=== PATIENT | female | born 1945 | race Caucasian/White ===

== ENCOUNTER 2016-08-05 11:50 | Outpatient (CLI) | payer MEDICARE, OTHER | END 2016-08-05 11:51 | disposition home or self-care (01) | DX: Z12.31 Encounter for screening mammogram for malignant neoplasm of breast (principal) ==

== ENCOUNTER 2016-11-17 11:24 | Outpatient (CLI) | payer MEDICARE, OTHER | END 2016-11-17 11:25 | disposition home or self-care (01) | DX: R74.0 Nonspecific elevation of levels of transaminase and lactic acid dehydrogenase [LDH] (principal); E11.9 Type 2 diabetes mellitus without complications; I10 Essential (primary) hypertension; E78.5 Hyperlipidemia, unspecified ==

== ENCOUNTER 2018-01-15 08:16 | Outpatient (CLI) | payer MEDICARE, OTHER ==
[2018-01-15 11:16] LABS: BASOPHILS # (AUTO) 0.1 10^3/uL (0.0-0.1); BASOPHILS % (AUTO) 0.6 %; EOSINOPHILS # (AUTO) 0.2 10^3/uL (0.0-0.7); EOSINOPHILS % (AUTO) 1.4 %; HGB - HEMOGLOBIN 14.1 g/dL (12.0-16.0); LYMPHOCYTES # (AUTO) 3.6 10^3/uL (1.5-3.5); LYMPHOCYTES % (AUTO) 34.6 %; MEAN CORPUSCULAR HEMOGLOBIN 31.3 pg (27.0-31.0); MEAN CORPUSCULAR HGB CONC 33.3 g/dL (32.0-36.0); MEAN CORPUSCULAR VOLUME 93.8 fL (81.0-99.0); MEAN PLATELET VOLUME 10.9 fL (7.9-10.8); MONOCYTES # (AUTO) 0.7 10^3/uL (0.0-1.0); MONOCYTES % (AUTO) 6.9 %; NEUTROPHILS # (AUTO) 5.9 10^3/uL (1.5-6.6); NEUTROPHILS % (AUTO) 56.5 %; PLT - PLATELET COUNT 206 10^3/uL (130-450); RED BLOOD COUNT 4.53 10^6/uL (4.20-5.40); RED CELL DISTRIBUTION WIDTH 12.6 % (12.0-15.0); WHITE BLOOD COUNT 10.5 x10^3/uL (4.8-10.8)
[2018-01-15 11:48] LABS: ALBUMIN 3.7 g/dL (3.2-5.5); ALKALINE PHOSPHATASE 57 IU/L (42-121); ALT ALANINE AMINOTRANSFERASE 57 IU/L (10-60); AST ASPARTATE AMINOTRANSFERASE 37 IU/L (10-42); BILIRUBIN,TOTAL 1.1 mg/dL (0.2-1.0); BUN - BLOOD UREA NITROGEN 16 mg/dL (6-20); CALCIUM 9.3 mg/dL (8.5-10.3); CARBON DIOXIDE - CO2 30 mmol/L (21-32); CHLORIDE 98 mmol/L (101-111); CHOL/HDL RATIO 3.7 (<4.4); CHOLESTEROL 147 mg/dL; CREATININE 0.7 mg/dL (0.4-1.0); GFR - MDRD 82 (>89); GLUCOSE 298 mg/dL (70-100); HDL CHOLESTEROL 40 mg/dL; LDL CHOLESTEROL,CALCULATED 71 mg/dL; LDL/HDL RATIO 1.8 (<4.4); SODIUM 136 mmol/L (135-145); TOTAL PROTEIN 7.3 g/dL (6.7-8.2); VLDL CHOLESTEROL 36 mg/dL
[2018-01-15 12:18] LABS: HB2 TOTAL 15.1 g/dL; HEMOGLOBIN A1C 1.6 g/dL; HEMOGLOBIN A1C % 11.8 % (4.6-6.2)
== END 2018-01-15 08:17 | disposition home or self-care (01) ==
LOC: LAB.F 08:16
PROVIDERS: ATTEND Family Medicine
DX: E11.9 Type 2 diabetes mellitus without complications (principal); E78.5 Hyperlipidemia, unspecified; I10 Essential (primary) hypertension
CPT/HCPCS: 36415; 80053; 80061; 83036; 83721; 85025

== ENCOUNTER 2018-01-21 13:19 | Outpatient (CLI) | payer MEDICARE, OTHER ==
--- NOTE | 2018-01-21 16:51 | XRAY Report ---
Procedure Date: 01/21/2018 Accession Number: [id number] / [id number] Procedure: XRS - Sinus Complete CPT Code: FULL RESULT: EXAM: Sinus Complete DATE: 01/21/2018 1:34 PM CLINICAL HISTORY: CHRONIC SINUSITIS, congestion TECHNIQUE: COMPARISON: 10/22/[address] FINDINGS: The sinuses are clear. No bone destruction or radiopaque orbital foreign body. Nasal septum midline. Nasopharyngeal soft tissues not enlarged. IMPRESSION: No findings to suggest sinus disease
== END 2018-01-21 13:20 | disposition home or self-care (01) ==
LOC: DI.S 13:19
PROVIDERS: ATTEND Physician Assistant Medical
DX: J32.9 Chronic sinusitis, unspecified (principal)
CPT/HCPCS: 70220

== ENCOUNTER 2018-02-16 08:13 | Outpatient (CLI) | payer MEDICARE, OTHER ==
[2018-02-16 13:29] LABS: ALBUMIN 3.8 g/dL (3.2-5.5); ALBUMIN/GLOBULIN RATIO 1.2 (1.0-2.2); BILIRUBIN,TOTAL 1.2 mg/dL (0.2-1.0); CALCIUM 9.5 mg/dL (8.5-10.3); CREATININE 0.7 mg/dL (0.4-1.0); TOTAL PROTEIN 7.1 g/dL (6.7-8.2)
== END 2018-02-16 08:14 | disposition home or self-care (01) ==
LOC: LAB.F 08:13
PROVIDERS: ATTEND Physician Assistant Medical
DX: Z51.81 Encounter for therapeutic drug level monitoring (principal)
CPT/HCPCS: 36415; 80053

== ENCOUNTER 2018-03-11 12:47 | Outpatient (CLI) | payer MEDICARE, OTHER | END 2018-03-11 12:48 | disposition home or self-care (01) | LOC: NS 12:47 | PROVIDERS: ATTEND Physician Assistant Medical | DX: Z71.3 Dietary counseling and surveillance (principal); E11.65 Type 2 diabetes mellitus with hyperglycemia; Z68.38 Body mass index [BMI] 38.0-38.9, adult; E78.2 Mixed hyperlipidemia | CPT/HCPCS: 97802 ==

== ENCOUNTER 2018-03-26 10:55 | Outpatient (CLI) | payer MEDICARE, OTHER | END 2018-03-26 10:56 | disposition home or self-care (01) | LOC: NS 10:55 | PROVIDERS: ATTEND Physician Assistant Medical | DX: Z71.3 Dietary counseling and surveillance (principal); E11.65 Type 2 diabetes mellitus with hyperglycemia; Z68.38 Body mass index [BMI] 38.0-38.9, adult; E78.2 Mixed hyperlipidemia; Z79.84 Long term (current) use of oral hypoglycemic drugs; Z68.36 Body mass index [BMI] 36.0-36.9, adult | CPT/HCPCS: 97803 ==

== ENCOUNTER 2018-04-30 10:11 | Outpatient (CLI) | payer MEDICARE, OTHER ==
[2018-04-30 18:19] LABS: HGB - HEMOGLOBIN 13.4 g/dL (12.0-16.0); MEAN CORPUSCULAR HEMOGLOBIN 31.4 pg (27.0-31.0); MEAN CORPUSCULAR HGB CONC 33.8 g/dL (32.0-36.0); MEAN CORPUSCULAR VOLUME 92.8 fL (81.0-99.0); MEAN PLATELET VOLUME 10.3 fL (7.9-10.8); RED BLOOD COUNT 4.28 10^6/uL (4.20-5.40); RED CELL DISTRIBUTION WIDTH 12.8 % (12.0-15.0); WHITE BLOOD COUNT 9.4 x10^3/uL (4.8-10.8)
[2018-04-30 19:49] LABS: ALBUMIN 3.9 g/dL (3.2-5.5); ALBUMIN/GLOBULIN RATIO 1.1 (1.0-2.2); ALKALINE PHOSPHATASE 55 IU/L (42-121); ALT ALANINE AMINOTRANSFERASE 44 IU/L (10-60); AST ASPARTATE AMINOTRANSFERASE 30 IU/L (10-42); BUN - BLOOD UREA NITROGEN 15 mg/dL (6-20); CALCIUM 9.4 mg/dL (8.5-10.3); CARBON DIOXIDE - CO2 30 mmol/L (21-32); CHLORIDE 101 mmol/L (101-111); CHOL/HDL RATIO 3.4 (<4.4); CHOLESTEROL 141 mg/dL; CREATININE 0.7 mg/dL (0.4-1.0); GFR - MDRD 82 (>89); GLUCOSE 119 mg/dL (70-100); HDL CHOLESTEROL 42 mg/dL; LDL CHOLESTEROL,CALCULATED 74 mg/dL; LDL/HDL RATIO 1.8 (<4.4); SODIUM 140 mmol/L (135-145); TOTAL PROTEIN 7.3 g/dL (6.7-8.2); URIC ACID 6.3 mg/dL (2.6-7.2); VLDL CHOLESTEROL 25 mg/dL
[2018-04-30 20:02] LABS: CRP - C-REACTIVE PROTEIN < 1.0 mg/dL (0-1.0)
[2018-04-30 20:15] LABS: RHEUMATOID FACTOR NEGATIVE (Negative)
[2018-04-30 20:21] LABS: HB2 TOTAL 14.3 g/dL; HEMOGLOBIN A1C 0.8 g/dL; HEMOGLOBIN A1C % 7.3 % (4.6-6.2)
[2018-05-03 20:16] LABS: ANA SCREEN NEGATIVE (NEGATIVE)
== END 2018-04-30 10:12 | disposition home or self-care (01) ==
LOC: LAB.F 10:11
PROVIDERS: ATTEND Physician Assistant Medical
DX: E11.65 Type 2 diabetes mellitus with hyperglycemia (principal); M20.039 Swan-neck deformity of unspecified finger(s); M13.0 Polyarthritis, unspecified
CPT/HCPCS: 36415; 80053; 80061; 82043; 83036; 83721; 84550; 85027; 85651; 86038; 86140; 86200; 86430

== ENCOUNTER 2018-07-20 07:33 | Outpatient (CLI) | payer MEDICARE, OTHER ==
[2018-07-20 13:23] LABS: HB2 TOTAL 13.1 g/dL; HEMOGLOBIN A1C 0.61 g/dL; HEMOGLOBIN A1C % 6.4 % (4.6-6.2)
== END 2018-07-20 07:34 | disposition home or self-care (01) ==
LOC: LAB.F 07:33
PROVIDERS: ATTEND Physician Assistant Medical
DX: E11.9 Type 2 diabetes mellitus without complications (principal)
CPT/HCPCS: 36415; 83036

== ENCOUNTER 2019-07-13 09:57 | Outpatient (CLI) | payer MEDICARE, OTHER ==
[2019-07-13 18:59] LABS: BASOPHILS # (AUTO) 0.1 10^3/uL (0.0-0.1); BASOPHILS % (AUTO) 0.5 %; EOSINOPHILS # (AUTO) 0.2 10^3/uL (0.0-0.7); EOSINOPHILS % (AUTO) 1.7 %; HGB - HEMOGLOBIN 12.7 g/dL (12.0-16.0); LYMPHOCYTES # (AUTO) 3.2 10^3/uL (1.5-3.5); MEAN CORPUSCULAR HEMOGLOBIN 29.7 pg (27.0-31.0); MEAN CORPUSCULAR HGB CONC 30.5 g/dL (32.0-36.0); MEAN CORPUSCULAR VOLUME 97.4 fL (81.0-99.0); MEAN PLATELET VOLUME 12.5 fL (7.9-10.8); MONOCYTES # (AUTO) 0.7 10^3/uL (0.0-1.0); MONOCYTES % (AUTO) 7.7 %; NEUTROPHILS # (AUTO) 5.3 10^3/uL (1.5-6.6); NEUTROPHILS % (AUTO) 55.7 %; PLT - PLATELET COUNT 215 10^3/uL (130-450); RED BLOOD COUNT 4.28 10^6/uL (4.20-5.40); RED CELL DISTRIBUTION WIDTH 12.5 % (12.0-15.0); WHITE BLOOD COUNT 9.5 x10^3/uL (4.8-10.8)
[2019-07-13 19:16] LABS: HB2 TOTAL 13.3 g/dL; HEMOGLOBIN A1C 1.27 g/dL; HEMOGLOBIN A1C % 10.9 % (4.6-6.2)
[2019-07-13 19:17] LABS: BUN - BLOOD UREA NITROGEN 17 mg/dL (6-20); CALCIUM 9.3 mg/dL (8.5-10.3); CARBON DIOXIDE - CO2 31 mmol/L (21-32); CHLORIDE 103 mmol/L (101-111); CHOL/HDL RATIO 3.7 (<4.4); CHOLESTEROL 155 mg/dL; CREATININE 0.5 mg/dL (0.4-1.0); GFR - MDRD 121 (>89); GLUCOSE 251 mg/dL (70-100); HDL CHOLESTEROL 42 mg/dL; LDL CHOLESTEROL,CALCULATED 88 mg/dL; LDL/HDL RATIO 2.1 (<4.4); SODIUM 140 mmol/L (135-145); VLDL CHOLESTEROL 25 mg/dL
== END 2019-07-13 09:58 | disposition home or self-care (01) ==
LOC: LAB.S 09:57
PROVIDERS: ATTEND Physician Assistant Medical
DX: E11.9 Type 2 diabetes mellitus without complications (principal); E78.2 Mixed hyperlipidemia; I10 Essential (primary) hypertension
CPT/HCPCS: 36415; 80048; 80061; 83036; 83721; 85025

== ENCOUNTER 2019-07-14 04:08 | Outpatient (CLI) | payer MEDICARE, OTHER ==
[2019-07-14 12:55] LABS: CREATININE,URINE 63.5 mg/dL; MICROALBUM/CREATININE RATIO,UR 15.7 ug/mg (<30.0)
== END 2019-07-14 23:59 | disposition home or self-care (01) ==
LOC: LAB.R 04:08
PROVIDERS: ATTEND Physician Assistant Medical
DX: E11.9 Type 2 diabetes mellitus without complications (principal)
CPT/HCPCS: 82043; 82570

== ENCOUNTER 2019-10-09 16:23 | Outpatient (CLI) | payer MEDICARE, OTHER | END 2019-10-09 16:24 | disposition EMS.NT | LOC: EMS 16:23 | PROVIDERS: ATTEND Surgery | DX: M25.511 Pain in right shoulder (principal); W01.0XXA Fall on same level from slipping, tripping and stumbling without subsequent striking against object, initial encounter; Y92.000 Kitchen of unspecified non-institutional (private) residence as the place of occurrence of the external cause ==

== ENCOUNTER 2019-10-09 17:32 | Emergency (ER) | payer MEDICARE, OTHER ==
[2019-10-09] MEDS ORDERED: ONDANSETRON ODT 4 MG TABLET TL STA (17:49)
[2019-10-09] MEDS ORDERED: HYDROmorphone 1 MG/ML SYRINGE IM STA (17:49)
--- NOTE | 2019-10-09 17:53 | ED Physician Documentation ---
PD HPI UPPER EXT INJURY - Stated complaint Stated Complaint: GLF/RT ARM INJURY - Chief complaint Chief Complaint: Ext Problem - History obtained from History obtained from: Patient - History of Present Illness Location: Left (She had a trip and fall over a box directly onto her left side hitting her left shoulder on the ground. She did not hit her head. She denies head pain or neck pain. No other injuries. Pain is severe though.) Review of Systems Constitutional: denies: Fever, Chills Throat: denies: Dental pain / toothache, Sore throat Cardiac: denies: Chest pain / pressure, Palpitations Respiratory: denies: Dyspnea, Cough PD PAST MEDICAL HISTORY - Past Medical History Cardiovascular: Hypertension, High cholesterol Respiratory: None Endocrine/Autoimmune: Type 2 diabetes GI: GERD - Past Surgical History Past Surgical History: Yes Ortho: Knee replacement - Present Medications Home Medications: Ambulatory Orders Medication Instructions Recorded Confirmed Atenolol 50 mg PO DAILY 10/23/14 10/09/19 Atorvastatin [Lipitor] 10 mg PO BID 10/23/14 10/09/19 Metformin HCl 1,000 mg PO BID 10/23/14 10/09/19 Aspirin EC [Ecotrin] 81 mg PO 10/09/19 Glimepiride 20 mg PO 10/09/19 Hydrocodone/Acetaminophen 0.5 - 1 each PO Q6H PRN #20 tablet 10/09/19 [Hydrocodon-Acetaminophen 5-325] Losartan [Cozaar] 50 mg PO DAILY 10/09/19 10/09/19 Multivitamin [Multiple Vitamins] 10/09/19 - Allergies Allergies/Adverse Reactions: Allergies Allergy/AdvReac Type Severity Reaction Status Date / Time morphine AdvReac Emesis Verified 10/23/14 11:59 - Social History Does the pt smoke?: No Smoking Status: Never smoker Does the pt drink ETOH?: No Does the pt have substance abuse?: No - Immunizations Immunizations are current?: Yes PD ED PE NORMAL - Vitals Vital signs reviewed: Yes - General General: Alert and oriented X 3, No acute distress - HEENT HEENT: PERRL, EOMI - Neck Neck: Supple, no meningeal sign, No bony TTP - Cardiac Cardiac: RRR, No murmur - Respiratory Respiratory: No respiratory distress, Clear bilaterally - Abdomen Abdomen: Non tender - Back Back: No CVA TTP, No spinal TTP - Derm Derm: Normal color, Warm and dry - Extremities Extremities: Other (Tender over the upper humerus and winces with any motion there. Normal neurovascular function in the forearm and hand. Lower extremities and right upper extremity are nontender.) - Neuro Neuro: Alert and oriented X 3, No motor deficit, No sensory deficit, Normal speech - Psych Psych: Normal mood, Normal affect Results - Vitals Vitals: Vital Signs - 24 hr 10/09/19 10/09/19 10/09/19 17:43 18:45 20:15 Temperature 36.3 C L Heart Rate 76 79 80 Respiratory 22 16 18 Rate Blood Pressure 160/100 H 146/56 H 148/61 H O2 Saturation 93 93 95 Oxygen O2 Source Nasal cannula Oxygen Flow Rate 1.5 PD MEDICAL DECISION MAKING - ED course ED course: 74yo W with GLF and isolated LUE shoulder inj. XR as shown and to my eye non displaced glenoid frx too. Discussed with Dr Ding, ortho, agreed non--op in lsing and f/o oetho clinci. Pt very sensitive to narotics and per her reuest only v low doses used. Departure - Departure Disposition: 01 Home, Self Care Clinical Impression: Scapula fracture Qualifiers: Encounter type: initial encounter Scapula location: unspecified part of scapula Fracture type: closed Laterality: left Qualified Code(s): S42.102A - Fracture of unspecified part of scapula, left shoulder, initial encounter for closed fracture Humerus fracture Qualifiers: Encounter type: initial encounter Humerus Location: proximal Fracture type: closed Fracture morphology: other fracture Fracture alignment: nondisplaced Laterality: left Qualified Code(s): S42.295A - Other nondisplaced fracture of upper end of left humerus, initial encounter for closed fracture Condition: Good Record reviewed to determine appropriate education?: Yes Instructions: ED Fx Shoulder Follow-Up: [facility] [Provider Group] - Within 1 week Prescriptions: Hydrocodone/Acetaminophen [Hydrocodon-Acetaminophen 5-325] 0.5 - 1 each PO Q6H PRN #20 tablet PRN Reason: pain Comments: Do not drink or drive while taking narcotic pain medication. Note that many narcotic pain relievers also contain Tylenol/acetaminophen. Please ensure that your total dose of acetaminophen from all sources does not exceed 3 g (3000 mg) per day. You may get constipated while on this medication. Take a stool softener such as Colace twice a day while you are on it. Also add an oqih-vhi-tgrvgmj laxative such as senna or MiraLAX on any day that you do not have a bowel movement. If you received a narcotic pain medication or sedative while in the emergency department, do not drive for the next 24 hours. Discharge Date/Time: 10/09/19 21:03
[2019-10-09] MEDS ORDERED: KETOROLAC 60 MG/2 ML VIAL IM STA (17:59)
[2019-10-09] MEDS ORDERED: HYDROcod/ACETAM 5/325 MG TABLET PO STA (18:36)
--- NOTE | 2019-10-09 19:00 | XRAY Report ---
Reason: arm inj Procedure Date: 10/09/2019 Accession Number: [id number] / [id number] Procedure: XR - Humerus LT CPT Code: Final Report FULL RESULT: EXAM: LEFT HUMERUS RADIOGRAPHY EXAM DATE: 10/09/2019 06:27 PM. CLINICAL HISTORY: Arm injury. COMPARISON: None. TECHNIQUE: 2 views. FINDINGS: Bones: There is a minimally displaced transverse fracture through the surgical neck of the humerus with a vertical component extending through the greater tuberosity. There is also an apparent fracture involving the infraspinous segment of the scapula including glenoid however detail is suboptimal due to patient positioning. Joints: Normal. No effusions or subluxations in the visualized shoulder or elbow joints. Soft Tissues: Normal. No soft tissue swelling. IMPRESSION: Minimally displaced three-part humeral head and neck fracture. Additional scapula fractures which may be better assessed by dedicated scapular views or CT. RADIA
[2019-10-09 20:16] VITALS: BP 148/61
--- NOTE | 2019-10-09 20:48 | CT Report ---
Reason: humerus and scapula fracture Procedure Date: 10/09/2019 Accession Number: [id number] / [id number] Procedure: CT - UPPER EXTREMITY WO - LT CPT Code: Final Report FULL RESULT: EXAM: LEFT SHOULDER CT WITHOUT CONTRAST EXAM DATE: 10/09/2019 08:03 PM. CLINICAL HISTORY: Humerus and scapula fracture. Fall. COMPARISON: 10/09/2019 radiograph. TECHNIQUE: Thin-section axial images were acquired of the shoulder without contrast. Post-processing: Coronal and sagittal reformats. Other: None. In accordance with CT protocol optimization, one or more of the following dose reduction techniques were utilized for this exam: automated exposure control, adjustment of mA and/or KV based on patient size, or use of iterative reconstructive technique. FINDINGS: Bones: Mild osteopenia is present. A comminuted fracture of the proximal humerus has a curvilinear fracture line through the surgical neck. There is also a sagittal-oriented fracture line that separates the greater tuberosity. The greater tuberosity is superiorly displaced by 4 mm. Joints: The glenohumeral joint is unremarkable. Mild acromioclavicular osteoarthropathy is evidence by bony hypertrophy and capsular calcification. The acromion is type II. Musculature: Normal. No fatty atrophy. Other: The visualized lungs are unremarkable. No lymphadenopathy in the visualized axilla. IMPRESSION: Neer one part fracture of the proximal humerus. RADIA
[2019-10-09] MEDS ORDERED: HYDROcod/ACET 5/325 Prepack 4 PO STA (20:51)
[2019-10-10] MEDS ORDERED: ONDANSETRON ODT 4 MG Prepack 2 TL STA (20:17)
--- NOTE | 2019-10-10 20:19 | ED Physician Documentation ---
ED Addendum - Addendum Addendum: 10/10/19 20:19 To call from daughter, she is having a lot of nausea from the pain medicine. She will come up and get a prepack of Zofran for tonight and I wrote a prescription for Zofran 4 mg ODT 1 by mouth every 6 hours as needed for nausea #20.
[2019-10-10] MEDS ORDERED: ONDANSETRON ODT 4 MG Prepack 2 TL ONE (20:28)
== END 2019-10-09 21:03 | disposition home or self-care (01) ==
LOC: ED 17:32
DX: S42.142A Displaced fracture of glenoid cavity of scapula, left shoulder, initial encounter for closed fracture (principal); W18.09XA Striking against other object with subsequent fall, initial encounter; I10 Essential (primary) hypertension; E78.00 Pure hypercholesterolemia, unspecified; E11.9 Type 2 diabetes mellitus without complications; Z79.84 Long term (current) use of oral hypoglycemic drugs; Z79.82 Long term (current) use of aspirin
CPT/HCPCS: 73060; 73200; 96372; 99284; A9270; Q0162

== ENCOUNTER 2019-12-06 12:09 | Outpatient (CLI) | payer MEDICARE, OTHER ==
--- NOTE | 2019-12-07 21:00 | XRAY Report ---
Reason: OTHER DISPLACE FRACTURE OF UPPER END OF LT HUMERUS Procedure Date: 12/06/2019 Accession Number: [id number] / [id number] Procedure: XR - Shoulder 3 View LT CPT Code: Final Report FULL RESULT: EXAM: LEFT SHOULDER RADIOGRAPHY EXAM DATE: 12/06/2019 12:41 PM. CLINICAL HISTORY: OTHER DISPLACE FRACTURE OF UPPER END OF LT HUMERUS. COMPARISON: HUMERUS LT 10/09/2019 6:08 PM. TECHNIQUE: 3 views. FINDINGS: Bones: Comminuted humeral head and neck fracture. Fracture involves greater tuberosity. Lateral aspect is displaced craniad by 4 mm which is unchanged.. Periosteal new bone formation. Fracture is visible Joints: Glenohumeral osteophyte. AC joint hypertrophy. Soft tissues: The visualized hemithorax is unremarkable. No soft tissue swelling. IMPRESSION: Healing comminuted humeral head and neck fracture RADIA
== END 2019-12-06 12:10 | disposition home or self-care (01) ==
LOC: DI 12:09
PROVIDERS: ATTEND Orthopaedic Surgery Sports Medicine
DX: S42.292D Other displaced fracture of upper end of left humerus, subsequent encounter for fracture with routine healing (principal)

== ENCOUNTER 2020-04-20 07:25 | Outpatient (CLI) | payer MEDICARE, OTHER ==
--- NOTE | 2020-04-20 16:38 | XRAY Report ---
PROCEDURE: Shoulder 2 View LT INDICATIONS: DISPLACED FRACTURE PROXIMAL HUMERUS LEFT TECHNIQUE: 2 views of the shoulder were acquired. COMPARISON: Left shoulder x-ray 12/06/2019, 10/09/2019. CT left upper extremity 10/19/2019. FINDINGS: Bones: There is progressive healing of a left humeral head fracture with the fracture line less dist inct in appearance. There is bridging callus along the fracture margins. No change in alignment. Ther e is mild acromioclavicular joint degeneration again noted. Visualized ribs appear intact. Soft tissues: No suspicious soft tissue calcifications. IMPRESSION: 1. Progressive healing of left humeral head fracture. Reviewed by: Akbar Ontiveros MD on 04/20/2020 4:37 PM PDT Approved by: Akbar Ontiveros MD on 04/20/2020 4:37 PM PDT Station ID: [id number]
== END 2020-04-20 07:26 | disposition home or self-care (01) ==
LOC: DI.WCP 07:25
PROVIDERS: ATTEND Orthopaedic Surgery
DX: S42.292A Other displaced fracture of upper end of left humerus, initial encounter for closed fracture (principal)

== ENCOUNTER 2020-06-23 10:32 | Outpatient (CLI) | payer MEDICARE, OTHER ==
[2020-06-23 15:17] LABS: CALCIUM 9.9 mg/dL (8.5-10.3); CREATININE 0.6 mg/dL (0.4-1.0)
[2020-06-23 19:56] LABS: HEMOGLOBIN A1c% 11.5 % (4.27-6.07)
== END 2020-06-23 10:33 | disposition home or self-care (01) ==
LOC: LAB.S 10:32
PROVIDERS: ATTEND Registered Nurse
DX: E11.9 Type 2 diabetes mellitus without complications (principal)
CPT/HCPCS: 36415; 80048; 83036

== ENCOUNTER 2020-06-24 12:50 | Outpatient (CLI) | payer MEDICARE, OTHER ==
[2020-06-24 18:35] LABS: CREATININE,URINE 97.7 mg/dL; MICROALBUM/CREATININE RATIO,UR 7.2 ug/mg (<30.0); MICROALBUMIN,URINE 0.7 mg/dL (0-300.0)
== END 2020-06-24 23:59 | disposition home or self-care (01) ==
LOC: LAB.R 12:50
PROVIDERS: ATTEND Registered Nurse
DX: E11.9 Type 2 diabetes mellitus without complications (principal)
CPT/HCPCS: 82043; 82570

== ENCOUNTER 2020-09-26 09:42 | Outpatient (CLI) | payer MEDICARE, OTHER ==
[2020-09-26 15:05] LABS: CALCIUM 9.5 mg/dL (8.5-10.3); CREATININE 0.6 mg/dL (0.4-1.0)
[2020-09-26 15:06] LABS: HEMOGLOBIN A1c% 8.5 % (4.27-6.07)
[2020-09-26 20:34] LABS: CREATININE,URINE 63.6 mg/dL; MICROALBUM/CREATININE RATIO,UR 17.3 ug/mg (<30.0); MICROALBUMIN,URINE 1.1 mg/dL (0-300.0)
== END 2020-09-26 09:43 | disposition home or self-care (01) ==
LOC: LAB.S 09:42
PROVIDERS: ATTEND Registered Nurse
DX: E11.9 Type 2 diabetes mellitus without complications (principal)
CPT/HCPCS: 36415; 80048; 82043; 82570; 83036

== ENCOUNTER 2020-10-20 07:00 | Outpatient (CLI) | payer MEDICARE, OTHER ==
[2020-10-20 15:53] LABS: BILIRUBIN,URINE NEGATIVE (NEGATIVE); GLUCOSE, URINE (UA) >=1000 mg/dL (NEGATIVE); KETONES,URINE (UA) NEGATIVE (NEGATIVE); LEUKOCYTE ESTERASE, URINE NEGATIVE (NEGATIVE); NITRITE,URINE NEGATIVE (NEGATIVE); OCCULT BLOOD,URINE NEGATIVE (NEGATIVE); PROTEIN,URINE NEGATIVE (NEGATIVE); UROBILINOGEN,URINE 0.2 (NORMAL) E.U./dL (NORMAL)
[2020-10-20 15:56] LABS: CLARITY,URINE CLEAR (CLEAR)
[2020-10-20 16:04] LABS: BACTERIA,URINE Few /HPF (None Seen); SQUAMOUS EPITHELIAL CELL,UR NONE SEEN (<= Few)
[2020-10-20 20:54] LABS: BACTERIAL VAGINOSIS DNA NEGATIVE (NEGATIVE); CANDIDA GLABRATA DNA NEGATIVE (NEGATIVE); CANDIDA GROUP DNA POSITIVE (NEGATIVE); CANDIDA KRUSEI DNA NEGATIVE (NEGATIVE); TRICHOMONAS VAGINALIS DNA NEGATIVE (NEGATIVE)
== END 2020-10-20 23:59 | disposition home or self-care (01) ==
LOC: LAB.R 07:00
PROVIDERS: ATTEND Emergency Medicine
DX: N76.0 Acute vaginitis (principal)
CPT/HCPCS: 81001; 87086; 87661; 87801

== ENCOUNTER 2022-05-31 15:14 | Outpatient (CLI) | payer MEDICARE, OTHER | END 2022-05-31 23:59 | disposition left against medical advice (07) | LOC: EMS 15:14 | DX: R07.89 Other chest pain (principal); M25.562 Pain in left knee; V43.52XA Car driver injured in collision with other type car in traffic accident, initial encounter; Y92.413 State road as the place of occurrence of the external cause ==

== ENCOUNTER 2023-02-10 10:34 | Outpatient (CLI) | payer MEDICARE, OTHER ==
[2023-02-10 15:08] LABS: BASOPHILS # (AUTO) 0.1 10^3/uL (0.0-0.1); BASOPHILS % (AUTO) 0.6 %; EOSINOPHILS # (AUTO) 0.1 10^3/uL (0.0-0.7); EOSINOPHILS % (AUTO) 1.2 %; HCT - HEMATOCRIT 41.8 % (37.0-47.0); HGB - HEMOGLOBIN 13.4 g/dL (12.0-16.0); LYMPHOCYTES # (AUTO) 2.5 10^3/uL (1.5-3.5); LYMPHOCYTES % (AUTO) 30.1 %; MEAN CORPUSCULAR HEMOGLOBIN 29.8 pg (27.0-31.0); MEAN CORPUSCULAR HGB CONC 32.1 g/dL (32.0-36.0); MEAN CORPUSCULAR VOLUME 92.9 fL (81.0-99.0); MEAN PLATELET VOLUME 12.2 fL (7.9-10.8); MONOCYTES # (AUTO) 0.7 10^3/uL (0.0-1.0); NEUTROPHILS # (AUTO) 4.9 10^3/uL (1.5-6.6); NEUTROPHILS % (AUTO) 58.7 %; PLT - PLATELET COUNT 226 10^3/uL (130-450); RED CELL DISTRIBUTION WIDTH 12.4 % (12.0-15.0); WHITE BLOOD COUNT 8.3 x10^3/uL (4.8-10.8)
[2023-02-10 15:41] LABS: ALBUMIN 3.8 g/dL (3.2-5.5); ALBUMIN/GLOBULIN RATIO 1.1 (1.0-2.2); ALKALINE PHOSPHATASE 43 IU/L (42-121); ALT ALANINE AMINOTRANSFERASE 20 IU/L (10-60); AST ASPARTATE AMINOTRANSFERASE 17 IU/L (10-42); BILIRUBIN,TOTAL 0.9 mg/dL (0.2-1.0); BUN - BLOOD UREA NITROGEN 19 mg/dL (6-20); CALCIUM 9.4 mg/dL (8.5-10.3); CARBON DIOXIDE - CO2 30 mmol/L (21-32); CHLORIDE 104 mmol/L (101-111); CHOL/HDL RATIO 5.3 (<4.4); CHOLESTEROL 262 mg/dL; CREATININE 0.7 mg/dL (0.4-1.0); GFR - MDRD 81 (>89); GLUCOSE 197 mg/dL (70-100); HDL CHOLESTEROL 49 mg/dL; LDL CHOLESTEROL,CALCULATED 195 mg/dL; POTASSIUM 3.9 mmol/L (3.5-5.0); SODIUM 139 mmol/L (135-145); TOTAL PROTEIN 7.4 g/dL (6.7-8.2); TRIGLYCERIDES 91 mg/dL; VLDL CHOLESTEROL 18 mg/dL
[2023-02-10 20:22] LABS: ESTIMATED AVERAGE GLUCOSE 180 mg/dL (70-100); HEMOGLOBIN A1c% 7.9 % (4.27-6.07)
[2023-02-11 15:09] LABS: HCV AB Non Reactive (Non Reactive)
[2023-02-11 15:26] LABS: CREATININE,URINE 92.6 mg/dL; MICROALBUM/CREATININE RATIO,UR 15.1 ug/mg (<30.0); MICROALBUMIN,URINE 1.4 mg/dL (0-300.0)
== END 2023-02-10 10:35 | disposition home or self-care (01) ==
LOC: LAB.S 10:34
PROVIDERS: ATTEND Internal Medicine
DX: E11.9 Type 2 diabetes mellitus without complications (principal); Z79.899 Other long term (current) drug therapy; Z11.59 Encounter for screening for other viral diseases; B37.9 Candidiasis, unspecified; R21 Rash and other nonspecific skin eruption; H93.19 Tinnitus, unspecified ear
CPT/HCPCS: 36415; 80053; 80061; 82043; 82570; 83036; 83721; 84443; 85025; 86803; 87522

== ENCOUNTER 2023-02-27 13:20 | Outpatient (CLI) | payer MEDICARE, OTHER ==
[2023-02-27] MEDS ORDERED: iohexoL-300 100 ML VIAL ONE (13:37)
[2023-02-27] MEDS ORDERED: iohexoL-300 100 ML VIAL IVP ONE (19:27)
--- NOTE | 2023-02-27 20:51 | CT Report ---
PROCEDURE: CT angiogram neck with contrast INDICATIONS: PULATILE TINNITUS CONTRAST: 80ml omni 300 TECHNIQUE: After the administration of intravenous contrast, 1.5 mm axial sections acquired from the aortic arch to the [place] of [place]. Coronal 3-D maximum intensity projection (MIP) and/or volume rendering ref ormats were then performed. For radiation dose reduction, the following was used: automated exposur e control, adjustment of mA and/or kV according to patient size. COMPARISON: None. FINDINGS: Image quality: Excellent. Carotid system: The great vessels demonstrate a conventional anatomy as they arise from the aortic a rch. The origins of the common carotid arteries appear patent. The common carotid arteries demonstr ate normal calibers and courses. Atherosclerotic plaque results in 50% right proximal ICA stenosis an d no significant stenosis on the left, utilizing NASCET criteria. Posterior circulation: The origins of the vertebral arteries appear patent. The more superior porti ons of the vertebral arteries demonstrate normal course and caliber. They join to form a normal appe aring basilar artery. Soft tissues: Visualized neck soft tissues demonstrate no suspicious abnormalities. Irregular thyro id nodules can be correlated with ultrasound Bones: No suspicious bony lesions. Visualized cervical spine appears normally aligned. 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
--- NOTE | 2023-02-27 20:58 | CT Report ---
PROCEDURE: CT angiogram head with contrast. CT head without contrast INDICATIONS: PULSATILE TINNITUS CONTRAST: 80ml omni 300 TECHNIQUE: Precontrast 4.5 mm thick angled axial sections acquired from the foramen magnum to the vertex. Afte r the administration of intravenous contrast, 1 mm thick sections acquired through the [place] of Will is. Postcontrast 4.5 mm thick sections then re-acquired from the foramen magnum to the vertex. maxi eou-lpuhxenud-fkclksqubk (MIP) and/or volume rendering reformats were acquired of the central intracr anial vasculature. For radiation dose reduction, the following was used: automated exposure control , adjustment of mA and/or kV according to patient size. COMPARISON: 10/23/2014 FINDINGS: Image quality: Excellent. Anterior circulation: 3.4 mm aneurysm arises from the left supraclinoid ICA oriented anteriorly. Mil d atherosclerotic plaque in the cavernous sections of both internal carotid arteries noted without st enosis. Intracranial The flow within the paired anterior cerebral arteries is normal and symmetric. The flow within the middle cerebral arteries is normal and symmetric. The anterior communicating art ludy is seen. No aneurysms are seen. Posterior circulation: Visualized portions of the vertebral arteries demonstrate normal caliber, and join to form a normal appearing basilar artery. Flow within the posterior cerebral arteries is norm al and symmetric. No aneurysms are seen. CSF spaces: Ventricles are normal in size and shape. Basal cisterns are patent. No extra-axial flu id collections. Brain: No midline shift. No intracranial bleeds or masses. Wagner-white matter interface appears int act. Skull and face: Calvarium and facial bones appear intact, without suspicious lesions. Sinuses: Visualized sinuses and mastoids are clear. IMPRESSION: 1. 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 2. No evidence of large vessel occlusion or significant intracranial stenosis 3. Unremarkable noncontrasted CT brain Reviewed by: Reji Mattson MD on 02/27/2023 7:57 PM AKSONALI Approved by: Reji Mattson MD on 02/27/2023 7:57 PM AKDT Station ID: [id number]
== END 2023-02-27 13:21 | disposition home or self-care (01) ==
LOC: DI 13:20
PROVIDERS: ATTEND Internal Medicine
DX: H93.19 Tinnitus, unspecified ear (principal); I67.1 Cerebral aneurysm, nonruptured; I65.21 Occlusion and stenosis of right carotid artery
CPT/HCPCS: 70496; 70498; Q9967

== ENCOUNTER 2023-03-11 12:18 | Outpatient (CLI) | payer MEDICARE, OTHER ==
--- NOTE | 2023-03-13 09:19 | Mammography Report ---
BILATERAL DIGITAL DIAGNOSTIC MAMMOGRAM 3D/2D WITH MAGNIFICATION: 03/11/2023 CLINICAL: Patient returns for magnification views of microcalcifications in both breasts. Comparison is made to exams dated: 02/17/2023 mammogram, 08/05/2016 mammogram, and 05/23/2015 mammogram - [facility]. Both breasts are almost entirely fatty (category a/<25% glandular tissue). There are grouped punctate round calcifications in the right breast posterior depth inferior region s een on the mediolateral oblique view only. There is cluster of grouped dystrophic punctate calcifications in the left breast central to the nipp le middle depth. These are seen in additional views. No other significant masses or calcifications are seen in either breast. IMPRESSION: PROBABLY BENIGN The grouped punctate round calcifications in the right breast posterior depth inferior region seen on the mediolateral oblique view only are probably benign. A follow-up right mammogram in 6 months is recommended to demonstrate stability. Benign dystrophic left breast calcifications. Findings and recommendations were conveyed to the patient during today's evaluation. Based on the Tyrer Cuzick model (a risk assessment model) the patients lifetime risk is 1.4% and her 10 year risk is 0.0%. According to the ACR, ACS, and NCCN guidelines, an annual breast MRI exam tomás g with mammogram is recommended if the patients lifetime risk is 20% or greater. This exam was interpreted at Station ID: [id number]. NOTE: For mammograms, a report in lay terms will be sent to the patient. Approximately 15% of breast malignancies will not be visualized mammographically. In the management of a palpable breast mass, a negative mammogram must not discourage biopsy of a clinically suspicious lesion. Electronically Signed By: Paul Bright M.D. aty/:03/11/2023 14:20:50 ACR BI-RADS Category 3: Probably benign 3343F PARENCHYMAL PATTERN: (F) - The breast(s) demonstrate(s) diffuse fatty replacement. BI-RADS CATEGORY: (3) - 3 Mammogram [id number] 6 month follow-up LATERALITY: (R)
== END 2023-03-11 12:19 | disposition home or self-care (01) ==
LOC: DI 12:18
PROVIDERS: ATTEND Internal Medicine
DX: R92.1 Mammographic calcification found on diagnostic imaging of breast (principal)

== ENCOUNTER 2023-10-28 12:38 | Outpatient (CLI) | payer MEDICARE, OTHER ==
--- NOTE | 2023-10-29 09:56 | Mammography Report ---
UNILATERAL RIGHT DIGITAL DIAGNOSTIC MAMMOGRAM 3D/2D WITH MAGNIFICATION: 10/28/2023 CLINICAL: Patient returns for a 6 month follow up of the right breast. Comparison is made to exams dated: 03/11/2023 mammogram, 02/17/2023 mammogram, 08/05/2016 mammogram, 03/31 mammogram, and 05/23/2015 mammogram - [facility]. The right breast is almost entirely fatty (category a/<25% glandular tissue). There are grouped punctate round calcifications in the right breast posterior depth inferior region s een on the mediolateral oblique view only. These are not significantly changed. No other significant masses or calcifications are seen in the breast. IMPRESSION: PROBABLY BENIGN The grouped punctate round calcifications in the right breast are probably benign. A follow-up mammogram in 6 months is recommended to demonstrate stability. Patient will be due for left breast mammogram at that time. Exam findings were conveyed to the patient. Based on the Tyrer Cuzick model (a risk assessment model) the patient's lifetime risk is 1.3% and her 10 year risk is 0.0%. According to the ACR, ACS, and NCCN guidelines, an annual breast MRI exam tomás g with mammogram is recommended if the patient's lifetime risk is 20% or greater. This exam was interpreted at Station ID: [id number]. NOTE: For mammograms, a report in lay terms will be sent to the patient. Approximately 15% of breast malignancies will not be visualized mammographically. In the management of a palpable breast mass, a negative mammogram must not discourage biopsy of a clinically suspicious lesion. Electronically Signed By: Juancho Ochoa M.D. slc/:10/28/2023 13:19:49 ACR BI-RADS Category 3: Probably benign 3343F PARENCHYMAL PATTERN: (F) - The breast(s) demonstrate(s) diffuse fatty replacement. BI-RADS CATEGORY: (3) - 3 Mammogram [id number] 6 month follow-up LATERALITY: (B)
== END 2023-10-28 12:39 | disposition home or self-care (01) ==
LOC: DI 12:38
PROVIDERS: ATTEND Internal Medicine
DX: R92.1 Mammographic calcification found on diagnostic imaging of breast (principal)

== ENCOUNTER 2024-01-23 15:27 | Outpatient (CLI) | payer MEDICARE, OTHER | END 2024-01-23 23:59 | disposition critical access hospital (66) | LOC: EMS 15:27 | DX: M79.18 Myalgia, other site (principal) | CPT/HCPCS: A0425; A0427 ==

== ENCOUNTER 2024-01-23 15:55 | Emergency (ER) | payer MEDICARE, OTHER ==
--- NOTE | 2024-01-23 16:34 | ED Physician Documentation ---
PD HPI BACK PAIN - Stated complaint Stated Complaint: L BUTTOCK PX - Chief complaint Chief Complaint: Ext Problem - History obtained from History obtained from: Patient, EMS - History of Present Illness Timing - onset: Today Timing - details: Abrupt onset (just bending over slightly at counter this moring. Onst of pain left low back, radiating to posterlateral pain dm), Still present Review of Systems Constitutional: denies: Fever, Chills Eyes: denies: Loss of vision Neurologic: reports: Headache. denies: Focal weakness, Numbness, Confused, Altered mental status, Head injury PD PAST MEDICAL HISTORY - Past Medical History Cardiovascular: Hypertension, High cholesterol Respiratory: None Neuro: None Endocrine/Autoimmune: Type 2 diabetes GI: GERD : None HEENT: None Psych: None Musculoskeletal: None Derm: None - Past Surgical History Past Surgical History: Yes Ortho: Knee replacement - Present Medications Home Medications: Ambulatory Orders Medication Instructions Recorded Confirmed Atenolol 50 mg PO DAILY 10/23/14 10/09/19 Atorvastatin [Lipitor] 10 mg PO BID 10/23/14 10/09/19 Metformin HCl 1,000 mg PO BID 10/23/14 10/09/19 Aspirin EC [Ecotrin] 81 mg PO 10/09/19 Glimepiride 20 mg PO 10/09/19 Hydrocodone/Acetaminophen 0.5 - 1 each PO Q6H PRN #20 tablet 10/09/19 [Hydrocodon-Acetaminophen 5-325] Losartan [Cozaar] 50 mg PO DAILY 10/09/19 10/09/19 Multivitamin [Multiple Vitamins] 10/09/19 HYDROcod/ACETAM 5/325 [Eden 5/325] 1 ea PO Q6H PRN #18 tablet 01/23/24 HYDROcod/ACETAM 5/325 [Eden 5/325] 1 ea PO Q6H PRN #18 tablet 01/23/24 Lidocaine Patch 5% [Lidoderm Patch] 1 patch TOP DAILY PRN #10 patch 01/23/24 Meloxicam [Mobic] 7.5 mg PO BID 10 Days #20 tablet 01/23/24 - Allergies Allergies/Adverse Reactions: Allergies Allergy/AdvReac Type Severity Reaction Status Date / Time morphine AdvReac Emesis Verified 10/23/14 11:59 - Social History Does the pt smoke?: No Smoking Status: Never smoker Does the pt drink ETOH?: No Does the pt have substance abuse?: No - Immunizations Immunizations are current?: Yes - POLST Patient has POLST: No PD ED PE NORMAL - Vitals Vital signs reviewed: Yes - General General: Alert and oriented X 3, No acute distress, Well developed/nourished - Neck Neck: Supple, no meningeal sign, No adenopathy - Cardiac Cardiac: RRR, No murmur - Respiratory Respiratory: Clear bilaterally - Abdomen Abdomen: Soft - Neuro Neuro: Alert and oriented X 3, 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, No motor deficit, No sensory deficit, Normal speech Results - Vitals Vitals: Vital Signs - 24 hr 01/23/24 01/23/24 16:05 19:11 Temperature 36.0 C L 36.5 C Heart Rate 99 88 Respiratory 14 16 Rate Blood Pressure 160/77 H 140/70 H O2 Saturation 85 L 94 Oxygen O2 Source Room air - Labs Labs: Laboratory Tests 01/23/24 01/23/24 17:05 17:05 WBC 10.4 RBC 4.28 Hgb 13.0 Hct 39.8 MCV 93.0 MCH 30.4 MCHC 32.7 RDW 12.1 Plt Count 209 MPV 10.9 H Neut # (Auto) 8.5 H Lymph # (Auto) 1.4 L Kendall # (Auto) 0.4 Eos # (Auto) 0.1 Baso # (Auto) 0.0 Absolute Nucleated RBC 0.00 Nucleated RBC % 0.0 Sodium 138 Potassium 3.9 Chloride 103 Carbon Dioxide 29 Anion Gap 6.0 BUN 21 H Creatinine 0.6 Estimated GFR (MDRD) 97 Glucose 251 H Calcium 9.5 Total Bilirubin 0.8 AST 14 ALT 16 Alkaline Phosphatase 48 Total Protein 7.1 Albumin 4.3 Globulin 2.8 Albumin/Globulin Ratio 1.5 Lipase 28 - Rads (name of study) lumbar CT Relevant Findings:: Prelim report reviewed (no acute fractures. ) PD Medical Decision Making - ED course Complexity details: reviewed results (no actue bony abnomrality nor notable disc process.), re-evaluated patient (pain improed with IV meds of toradol and dilaudid. ), considered differential (The patient was just walking with her cane and leaning over slightly when she fell to the abrupt onset of pain in the left sacroiliac/gluteal area. This radiated down to her left posterior thigh to j ust below the knee. It hurts with range of motion. No prior similar.), d/w patient Departure - Departure Disposition: 01 Home, Self Care Clinical Impression: Acute low back pain, Sciatic leg pain Condition: Stable Record reviewed to determine appropriate education?: Yes Instructions: ED Sciatica Follow-Up: Agnieszka Mac MD [Primary Care Provider] - Prescriptions: Lidocaine Patch 5% [Lidoderm Patch] 1 patch TOP DAILY PRN #10 patch PRN Reason: pain Meloxicam [Mobic] 7.5 mg PO BID 10 Days #20 tablet HYDROcod/ACETAM 5/325 [Eden 5/325] 1 ea PO Q6H PRN #18 tablet PRN Reason: Pain HYDROcod/ACETAM 5/325 [Eden 5/325] 1 ea PO Q6H PRN #18 tablet PRN Reason: Pain Comments: The pain in your back rating down your legs sounds like an irritation of the nerve. Your CT scan did not show any new fractures or bony lesions or such. We would typically try approaching this with some anti-inflammatories and topically with the lidocaine patch or so. Use Tylenol 500 to 650 mg 4 times regularly a day for the next week or so. Add hydrocodone/acetaminophen every 6 hours if needed for worse pain. I sent prescriptions to [facility] pharmacy in [place]. I would anticipate improvement over the next few days and mostly better over 3 to 5 days. There may be some residual after that. Follow-up with your primary care in the next few days, call Thursday for an appointment. They may institute some physical therapy or such as well. Return to the ER if pain is uncontrolled by the medication or you develop other symptoms, in particular weakness of the leg, fevers, rash, other concerns. I am prescribing a short course of narcotic pain medication for you. These are potentially dangerous and addictive medications that should be used carefully. These medications may constipate you. Take an ipuz-[id number]-prclcri stool softener such as docusate twice daily with plenty of water while taking these medications. If you go 24 hours without a bowel movement, take [id number] MiraLAX, per package instructions. Do not drink or drive while taking these medications. If you received narcotic or sedating medications while in the emergency department do not drive for 24 hours. Store this medication in a safe, secure place and out of reach of children. It is a violation of federal law to give or sell this medication to another person or to use in a manner other than prescribed. The ED will not refill narcotic prescriptions, including prescriptions lost or stolen. You can dispose of unwanted medications at the [facility]'s office or at several pharmacies such as [facility]. Forms: PCP List Discharge Date/Time: 01/23/24 19:11
[2024-01-23] MEDS: KETOROLAC 15 MG/ML VIAL IVP STA (16:54)
[2024-01-23] MEDS: HYDROmorphone 1 MG/ML CARPUJECT IVP STA (16:55)
[2024-01-23] MEDS: LIDOCAINE PATCH 5% TOP STA (16:55)
[2024-01-23 17:10] LABS: BASOPHILS % (AUTO) 0.4 %; EOSINOPHILS # (AUTO) 0.1 10^3/uL (0.0-0.7); EOSINOPHILS % (AUTO) 0.5 %; HCT - HEMATOCRIT 39.8 % (37.0-47.0); LYMPHOCYTES # (AUTO) 1.4 10^3/uL (1.5-3.5); LYMPHOCYTES % (AUTO) 13.3 %; MEAN CORPUSCULAR HEMOGLOBIN 30.4 pg (27.0-31.0); MEAN CORPUSCULAR HGB CONC 32.7 g/dL (32.0-36.0); MEAN PLATELET VOLUME 10.9 fL (7.9-10.8); MONOCYTES # (AUTO) 0.4 10^3/uL (0.0-1.0); NEUTROPHILS # (AUTO) 8.5 10^3/uL (1.5-6.6); NEUTROPHILS % (AUTO) 81.5 %; PLT - PLATELET COUNT 209 10^3/uL (130-450); RED BLOOD COUNT 4.28 10^6/uL (4.20-5.40); RED CELL DISTRIBUTION WIDTH 12.1 % (12.0-15.0); WHITE BLOOD COUNT 10.4 x10^3/uL (4.8-10.8)
[2024-01-23 17:27] LABS: ALBUMIN 4.3 g/dL (3.2-5.5); ALBUMIN/GLOBULIN RATIO 1.5 (1.0-2.2); BILIRUBIN,TOTAL 0.8 mg/dL (0.2-1.0); CALCIUM 9.5 mg/dL (8.5-10.3); CREATININE 0.6 mg/dL (0.6-1.3); POTASSIUM 3.9 mmol/L (3.5-4.5); TOTAL PROTEIN 7.1 g/dL (6.4-8.9)
[2024-01-23] MEDS ORDERED: iohexoL-300 100 ML VIAL ONE (17:37)
[2024-01-23] MEDS: iohexoL-300 100 ML VIAL IVP ONE (18:07)
[2024-01-23] MEDS: HYDROcod/ACET 5/325 Prepack 4 PO STA (18:23)
--- NOTE | 2024-01-23 18:52 | CT Report ---
PROCEDURE: Abdomen/Pelvis W INDICATIONS: abrupt low left back pain CONTRAST: 100ml omni 300 TECHNIQUE: After the administration of intravenous contrast, a CT scan of the abdomen and pelvis was performed. Images were recorded and evaluated at appropriate window settings. Reformats: coronal and sagittal. F or radiation dose reduction, the following was used: automated exposure control, adjustment of mA and /or kV according to patient size. COMPARISON: None. FINDINGS: Image quality: Diagnostic. Lower chest: Bibasilar atelectasis. Liver: No solid mass. Gallbladder: No radiopaque stones or wall thickening. Biliary tree: No intrahepatic or extrahepatic dilation, accounting for age. Spleen: No splenomegaly. Pancreas: No pancreatic ductal dilation. Adrenals: No adrenal nodule. Kidneys and ureters: No hydronephrosis. No renal cystic lesion which requires follow up. No solid mas s. Stomach, bowel and peritoneum: No gastric or small bowel dilation. No abnormal wall thickening. No pa thologic free fluid. Normal caliber appendix. Lymph nodes: No central or retroperitoneal adenopathy. Vessels: No infrarenal aortic aneurysm. Patent portal vein. Aortobiiliac atherosclerotic calcificatio ns. PELVIS Reproductive organs: Calcified uterine fibroids. Bladder: No abnormal wall thickening, accounting for underdistention. Pelvic lymph nodes: No pelvic adenopathy by size criteria. Bones: No aggressive osseous abnormality. Other: No significant ventral or inguinal hernia. IMPRESSION: No acute process in the abdomen or pelvis. Reviewed by: Mallory Agosto MD, PhD on 01/23/2024 5:51 PM JORDAN Approved by: Mallory Agosto MD, PhD on 01/23/2024 5:51 PM AKSONALI Station ID: [id number]
[2024-01-23 19:17] VITALS: BP 140/70; O2SAT 94
== END 2024-01-23 19:11 | disposition home or self-care (01) ==
LOC: EDUNIT# → ED 15:55
DX: M54.42 Lumbago with sciatica, left side (principal); I10 Essential (primary) hypertension; E78.00 Pure hypercholesterolemia, unspecified; E11.9 Type 2 diabetes mellitus without complications
CPT/HCPCS: 36415; 74177; 80053; 83690; 85025; 96374; 99284; A9270; J1170; Q9967